=== PATIENT | male | born 1955 | race Two or more races ===

== ENCOUNTER 2023-01-29 09:36 | Day surgery (SDC) | payer OTHER ==
[~2023-01-29 09:36] MED LIST: Lactated Ringers 1,000 ML IV SCH
[2023-01-29] MEDS ORDERED: Propofol 200 MG/20 ML SDV ONE (11:47)
[2023-01-29] MEDS ORDERED: Lidocaine 2% 5 ML SDV ONE (11:47)
== END 2023-01-29 13:00 | disposition home or self-care (01) ==
LOC: MW.SDS 09:36
PROVIDERS: ATTEND Surgery
DX: Z12.11 Encounter for screening for malignant neoplasm of colon (principal); K57.30 Diverticulosis of large intestine without perforation or abscess without bleeding; K64.8 Other hemorrhoids; I11.0 Hypertensive heart disease with heart failure; I50.20 Unspecified systolic (congestive) heart failure; I25.10 Atherosclerotic heart disease of native coronary artery without angina pectoris; N40.0 Benign prostatic hyperplasia without lower urinary tract symptoms; I48.91 Unspecified atrial fibrillation; E78.00 Pure hypercholesterolemia, unspecified; E03.9 Hypothyroidism, unspecified; E66.9 Obesity, unspecified; Z68.33 Body mass index [BMI] 33.0-33.9, adult; Z95.5 Presence of coronary angioplasty implant and graft; Z79.82 Long term (current) use of aspirin; Z79.01 Long term (current) use of anticoagulants; Z79.890 Hormone replacement therapy; Z79.899 Other long term (current) drug therapy
CPT/HCPCS: 45378; J2704; J7120; J3490

== ENCOUNTER 2023-03-12 08:47 | Emergency (ER) | payer OTHER ==
[2023-03-12] MEDS ORDERED: Sodium Chloride 0.9% 10 ML Syringe FLUSH PRN (09:12)
[2023-03-12] MEDS ORDERED: Sodium Chloride 0.9% 2.5 ML Syringe FLUSH PRN (09:12)
[2023-03-12 11:09] LABS: BASOPHILS ABSOLUTE AUTO 0.02 K/uL (0.00-0.20); BASOPHILS PERCENT AUTO 0.2 % (0.0-1.0); EOSINOPHILS ABSOLUTE AUTO 0.06 K/uL (0.00-0.45); EOSINOPHILS PERCENT AUTO 0.5 % (0.0-6.0); HEMATOCRIT 32.9 % (42.0-52.0); HEMOGLOBIN 10.7 g/dL (14.0-18.0); IMMATURE GRAN ABSOLUTE AUTO 0.03 K/uL (0.00-0.05); IMMATURE GRAN PERCENT AUTO 0.3 % (0.0-0.4); LYMPHOCYTES ABSOLUTE AUTO 0.76 K/uL (1.00-4.80); MEAN CORPUSCULAR HEMOGLOBIN 31.4 pg (28.0-32.0); MEAN CORPUSCULAR HGB CONC 32.5 g/dL (32.0-36.0); MEAN CORPUSCULAR VOLUME 96.5 fL (83.0-99.0); MEAN PLATELET VOLUME 10.1 fL (9.4-12.4); MONOCYTES ABSOLUTE AUTO 1.13 K/uL (0.00-0.80); MONOCYTES PERCENT AUTO 10.4 % (0.0-8.0); NEUTROPHILS ABSOLUTE AUTO 8.91 K/uL (1.80-7.70); NEUTROPHILS PERCENT AUTO 81.6 % (41.0-71.0); PLATELET COUNT,PLT 228 K/uL (150-400); RED BLOOD CELL COUNT 3.41 M/uL (4.52-5.90); WHITE BLOOD CELL COUNT,WBC 10.91 K/uL (3.9-11.3)
[2023-03-12 11:44] LABS: A/G RATIO 0.7 (0.9-1.6); BILIRUBIN TOTAL 1.1 mg/dL (0.2-1.0); CALCIUM 9.5 mg/dL (8.5-10.1); CREATININE 1.6 mg/dL (0.8-1.3); EST CRCL DRUG DOSING (CG) 40.16 mL/min; POTASSIUM,K 4.1 mmol/L (3.5-5.1); PROTEIN TOTAL,TP 7.5 g/dL (6.4-8.2)
[2023-03-12] MEDS ORDERED: Iopamidol 755 MG/ML 500 ML Multipack Bottle IVPUSH STA (12:09)
[2023-03-12] MEDS ORDERED: Enoxaparin 100 MG/1 ML Syringe SUBCUT ONE (14:29)
== END 2023-03-12 18:50 | disposition home or self-care (01) ==
LOC: MW.ED 08:47
DX: I26.99 Other pulmonary embolism without acute cor pulmonale (principal); I10 Essential (primary) hypertension; E78.00 Pure hypercholesterolemia, unspecified; E11.9 Type 2 diabetes mellitus without complications; Z79.01 Long term (current) use of anticoagulants; Z95.1 Presence of aortocoronary bypass graft; Z79.899 Other long term (current) drug therapy
CPT/HCPCS: 36415; 71045; 71275; 76705; 80053; 83690; 84484; 85025; 93005; 96372; 99284; J1650; J3490; Q9967

== ENCOUNTER 2023-03-13 10:14 | Emergency (ER) | payer OTHER ==
[2023-03-13] MEDS ORDERED: Sodium Chloride 0.9% 2.5 ML Syringe FLUSH PRN (10:26)
[2023-03-13] MEDS ORDERED: Sodium Chloride 0.9% 10 ML Syringe FLUSH PRN (10:26)
[2023-03-13] MEDS ORDERED: Ondansetron 4 MG Tab.DIS PO STA (10:50)
[2023-03-13 11:34] LABS: CORONAVIRUS COVID-19 NAA NEGATIVE (NEGATIVE); INFLUENZA A NAA NEGATIVE (NEGATIVE); INFLUENZA B NAA NEGATIVE (NEGATIVE); RESPIRATORY SYNCYTIAL VIR NAA NEGATIVE (NEGATIVE)
[2023-03-13] MEDS ORDERED: Lidocaine 1% 5 ML VIAL ONE (11:40)
[2023-03-13 12:16] LABS: BASOPHILS ABSOLUTE AUTO 0.03 K/uL (0.00-0.20); BASOPHILS PERCENT AUTO 0.3 % (0.0-1.0); EOSINOPHILS ABSOLUTE AUTO 0.02 K/uL (0.00-0.45); EOSINOPHILS PERCENT AUTO 0.2 % (0.0-6.0); HEMATOCRIT 30.5 % (42.0-52.0); HEMOGLOBIN 9.9 g/dL (14.0-18.0); IMMATURE GRAN ABSOLUTE AUTO 0.03 K/uL (0.00-0.05); IMMATURE GRAN PERCENT AUTO 0.3 % (0.0-0.4); LYMPHOCYTES ABSOLUTE AUTO 0.51 K/uL (1.00-4.80); LYMPHOCYTES PERCENT AUTO 4.5 % (24.0-44.0); MEAN CORPUSCULAR HEMOGLOBIN 31.1 pg (28.0-32.0); MEAN CORPUSCULAR HGB CONC 32.5 g/dL (32.0-36.0); MEAN CORPUSCULAR VOLUME 95.9 fL (83.0-99.0); MEAN PLATELET VOLUME 10.1 fL (9.4-12.4); MONOCYTES ABSOLUTE AUTO 0.86 K/uL (0.00-0.80); MONOCYTES PERCENT AUTO 7.6 % (0.0-8.0); NEUTROPHILS ABSOLUTE AUTO 9.94 K/uL (1.80-7.70); NEUTROPHILS PERCENT AUTO 87.1 % (41.0-71.0); PLATELET COUNT,PLT 226 K/uL (150-400); RED BLOOD CELL COUNT 3.18 M/uL (4.52-5.90); WHITE BLOOD CELL COUNT,WBC 11.39 K/uL (3.9-11.3)
[2023-03-13 12:40] LABS: A/G RATIO 0.8 (0.9-1.6); ALBUMIN 2.7 g/dL (3.4-5.0); BILIRUBIN TOTAL 2.4 mg/dL (0.2-1.0); CALCIUM 9.2 mg/dL (8.5-10.1); CARBON DIOXIDE,CO2 23.4 mmol/L (21.0-32.0); CREATININE 1.3 mg/dL (0.8-1.3); EST CRCL DRUG DOSING (CG) 49.43 mL/min; POTASSIUM,K 3.9 mmol/L (3.5-5.1); PROTEIN TOTAL,TP 6.2 g/dL (6.4-8.2)
[2023-03-13] MEDS ORDERED: Sodium Chloride 0.9% 1,000 ML IV STA (12:53)
[2023-03-13] MEDS ORDERED: Ketorolac 30 MG/ML SDV IVPUSH STA (12:53)
[2023-03-13] MEDS ORDERED: Iopamidol 755 MG/ML 500 ML Multipack Bottle IVPUSH STA (13:54)
[2023-03-13] MEDS ORDERED: Morphine 4 MG/ML Syringe IVPUSH STA (17:55)
== END 2023-03-13 19:44 ==
LOC: MW.ED 10:14
DX: K80.42 Calculus of bile duct with acute cholecystitis without obstruction (principal); R74.01 Elevation of levels of liver transaminase levels; E78.00 Pure hypercholesterolemia, unspecified; I10 Essential (primary) hypertension; E11.9 Type 2 diabetes mellitus without complications; E66.9 Obesity, unspecified; Z79.01 Long term (current) use of anticoagulants; Z79.899 Other long term (current) drug therapy; Z20.822 Contact with and (suspected) exposure to COVID-19; Z68.34 Body mass index [BMI] 34.0-34.9, adult
CPT/HCPCS: 0241U; 36415; 71046; 74177; 80053; 83690; 83735; 83880; 84484; 85025; 93005; 96361; 96374; 96375; 99285; A9270; J1885; J2270; J3490; J7030; Q9967

== ENCOUNTER 2024-06-19 07:09 | Inpatient (IN) | payer OTHER ==
[2024-06-19] MEDS ORDERED: Sodium Chloride 0.9% 10 ML Syringe FLUSH PRN (07:52)
[2024-06-19 07:59] LABS: BASOPHILS ABSOLUTE AUTO 0.02 K/uL (0.00-0.20); BASOPHILS PERCENT AUTO 0.4 % (0.0-1.0); EOSINOPHILS ABSOLUTE AUTO 0.03 K/uL (0.00-0.45); EOSINOPHILS PERCENT AUTO 0.6 % (0.0-6.0); HEMATOCRIT 25.1 % (42.0-52.0); HEMOGLOBIN 8.3 g/dL (14.0-18.0); IMMATURE GRAN ABSOLUTE AUTO 0.01 K/uL (0.00-0.05); IMMATURE GRAN PERCENT AUTO 0.2 % (0.0-0.4); LYMPHOCYTES PERCENT AUTO 28.1 % (24.0-44.0); MEAN CORPUSCULAR HEMOGLOBIN 35.2 pg (28.0-32.0); MEAN CORPUSCULAR HGB CONC 33.1 g/dL (32.0-36.0); MEAN CORPUSCULAR VOLUME 106.4 fL (83.0-99.0); MEAN PLATELET VOLUME 10.9 fL (9.4-12.4); MONOCYTES ABSOLUTE AUTO 0.53 K/uL (0.00-0.80); MONOCYTES PERCENT AUTO 9.9 % (0.0-8.0); NEUTROPHILS ABSOLUTE AUTO 3.24 K/uL (1.80-7.70); NEUTROPHILS PERCENT AUTO 60.8 % (41.0-71.0); PLATELET COUNT,PLT 150 K/uL (150-400); RED BLOOD CELL COUNT 2.36 M/uL (4.52-5.90); WHITE BLOOD CELL COUNT,WBC 5.33 K/uL (3.9-11.3)
[2024-06-19 08:06] LABS: INR 1.05 (0.86-1.11)
[2024-06-19 08:12] LABS: A/G RATIO 1.4 (0.9-1.6); ALANINE AMINOTRANSFERASE,ALT 26 IU/L (14-63); ALKALINE PHOSPHATASE 65 U/L (46-116); ASPARTATE AMNIOTRANSFERASE,AST 16 IU/L (15-37); BILIRUBIN TOTAL 0.7 mg/dL (0.2-1.0); BLOOD UREA NITROGEN,BUN 112 mg/dL (7.0-18.0); CALCIUM 9.2 mg/dL (8.5-10.1); CARBON DIOXIDE,CO2 16.4 mmol/L (21.0-32.0); CHLORIDE,CL 104 mmol/L (98-107); CREATININE 4.8 mg/dL (0.8-1.3); GLUCOSE RANDOM 97 mg/dL (74-106); MAGNESIUM 2.6 mg/dL (1.8-2.4); POTASSIUM,K 4.4 mmol/L (3.5-5.1); PROTEIN TOTAL,TP 6.9 g/dL (6.4-8.2); SODIUM,NA 140 mmol/L (136-148)
[2024-06-19 08:13] LABS: ESTIMATED GFR 12 mL/min (>60)
[2024-06-19] MEDS: Sodium Chloride 0.9% 1,000 ML IV ONE (08:14)
[2024-06-19 09:11] LABS: APPEARANCE,URINE CLEAR; COLOR,URINE YELLOW; GLUCOSE,URINE NEGATIVE (NEGATIVE); KETONES,URINE 15 mg/dL (NEGATIVE); LEUKOCYTE ESTERASE,URINE MODERATE (NEGATIVE); NITRITE,URINE NEGATIVE (NEGATIVE); OCCULT BLOOD,URINE NEGATIVE (NEGATIVE); PROTEIN,URINE NEGATIVE (NEGATIVE); UROBILINOGEN,URINE 0.2 EU/dL (<2.0)
[2024-06-19 09:12] LABS: BILIRUBIN,URINE MODERATE (NEGATIVE)
[2024-06-19 09:20] LABS: BACTERIA,URINE 2+ (NEGATIVE); EPITHELIAL CELLS,URINE FEW (NONE-FEW); RBC,URINE 0-2 (0-2/HPF); WBC,URINE 15-20 (0-5/HPF)
[2024-06-19] MEDS: Lactated Ringers 1,000 ML IV ONE (09:52)
[2024-06-19] MEDS ORDERED: cefTRIAXone 1,000 MG in Dextrose 5% in Water 50 ML IV ONE (10:42)
[2024-06-19] MEDS: Sodium Chloride 0.9% 1,000 ML IV SCH (11:09)
[2024-06-19] MEDS: cefTRIAXone 1 GM in Water For Injection, Sterile 10 ML IV ONE (11:48)
[2024-06-19] MEDS ORDERED: Ondansetron 4 MG/2 ML SDV IVPUSH PRN (13:39)
[2024-06-19] MEDS ORDERED: Acetaminophen 650 MG Supp RECTAL PRN (13:39)
[2024-06-19] MEDS ORDERED: Albuterol/Ipratropium 3.0-0.5 MG/3 ML Neb Soln NEB PRN (13:39)
[2024-06-19] MEDS ORDERED: Melatonin 3 MG Tab PO PRN (13:39)
[2024-06-19] MEDS: Gabapentin 300 MG Cap PO SCH (14:57)
[2024-06-19] MEDS: Acetaminophen 325 MG Tab PO PRN (14:57)
[2024-06-19] MEDS: Pantoprazole 40 MG in Sodium Chloride 0.9% 10 ML IVPUSH SCH (14:58)
[2024-06-19 17:24] LABS: BASOPHILS ABSOLUTE AUTO 0.02 K/uL (0.00-0.20); BASOPHILS PERCENT AUTO 0.5 % (0.0-1.0); EOSINOPHILS ABSOLUTE AUTO 0.05 K/uL (0.00-0.45); EOSINOPHILS PERCENT AUTO 1.3 % (0.0-6.0); HEMATOCRIT 20.6 % (42.0-52.0); HEMOGLOBIN 6.7 g/dL (14.0-18.0); IMMATURE GRAN ABSOLUTE AUTO 0.01 K/uL (0.00-0.05); IMMATURE GRAN PERCENT AUTO 0.3 % (0.0-0.4); LYMPHOCYTES ABSOLUTE AUTO 1.05 K/uL (1.00-4.80); LYMPHOCYTES PERCENT AUTO 27.6 % (24.0-44.0); MEAN CORPUSCULAR HEMOGLOBIN 34.9 pg (28.0-32.0); MEAN CORPUSCULAR HGB CONC 32.5 g/dL (32.0-36.0); MEAN CORPUSCULAR VOLUME 107.3 fL (83.0-99.0); MEAN PLATELET VOLUME 10.4 fL (9.4-12.4); MONOCYTES ABSOLUTE AUTO 0.43 K/uL (0.00-0.80); MONOCYTES PERCENT AUTO 11.3 % (0.0-8.0); NEUTROPHILS ABSOLUTE AUTO 2.24 K/uL (1.80-7.70); PLATELET COUNT,PLT 114 K/uL (150-400); RED BLOOD CELL COUNT 1.92 M/uL (4.52-5.90)
[2024-06-19 17:57] LABS: CALCIUM 8.1 mg/dL (8.5-10.1); CARBON DIOXIDE,CO2 18.4 mmol/L (21.0-32.0); CREATININE 3.4 mg/dL (0.8-1.3); EST CRCL DRUG DOSING (CG) 18.63 mL/min; POTASSIUM,K 4.3 mmol/L (3.5-5.1)
[2024-06-19] MEDS: atorvaSTATin 40 MG Tab PO SCH (21:08)
[2024-06-19] MEDS: Midodrine 5 MG Tab PO SCH (21:08)
[2024-06-19] MEDS: Tamsulosin 0.4 MG Cap.ER PO ONE (21:09)
[2024-06-20 05:58] LABS: HEMATOCRIT 20.2 % (42.0-52.0); HEMOGLOBIN 6.4 g/dL (14.0-18.0); MEAN CORPUSCULAR HEMOGLOBIN 34.2 pg (28.0-32.0); MEAN CORPUSCULAR HGB CONC 31.7 g/dL (32.0-36.0); MEAN PLATELET VOLUME 10.7 fL (9.4-12.4); PLATELET COUNT,PLT 104 K/uL (150-400); RED BLOOD CELL COUNT 1.87 M/uL (4.52-5.90); WHITE BLOOD CELL COUNT,WBC 3.06 K/uL (3.9-11.3)
[2024-06-20 06:22] LABS: CREATININE 2.5 mg/dL (0.8-1.3); EST CRCL DRUG DOSING (CG) 25.34 mL/min; MAGNESIUM 2.1 mg/dL (1.8-2.4); POTASSIUM,K 4.3 mmol/L (3.5-5.1)
[2024-06-20 07:26] LABS: EOSINOPHILS ABSOLUTE MAN 0.06 K/uL (0.00-0.45); EOSINOPHILS PERCENT MAN 2 % (0-6); LYMPHOCYTES PERCENT MAN 36 % (24-44); MICROCYTOSIS 1+ SLIGHT; MONOCYTES ABSOLUTE MAN 0.09 K/uL (0.00-0.80); MONOCYTES PERCENT MAN 3 % (0-8); SEG NEUTROPHILS ABSOLUTE MAN 1.81 K/uL (1.80-7.70); SEG NEUTROPHILS PERCENT MAN 59 % (41-71)
[2024-06-20] MEDS: Tamsulosin 0.4 MG Cap.ER PO SCH (08:11)
[2024-06-20] MEDS: cefTRIAXone 1 GM in Water For Injection, Sterile 10 ML IVPUSH SCH (08:11)
[2024-06-20] MEDS ORDERED: Tamsulosin 0.4 MG Cap.ER PO SCH (08:30)
[2024-06-20] MEDS: Midodrine 5 MG Tab PO SCH (12:22)
[2024-06-20 14:22] LABS: HEMATOCRIT 25.7 % (42.0-52.0); HEMOGLOBIN 8.5 g/dL (14.0-18.0)
[2024-06-20] MEDS: Sodium Chloride 0.9% 1,000 ML IV SCH (14:36)
[2024-06-20] MEDS: Benzonatate 100 MG Cap PO PRN (17:07)
[2024-06-20] MEDS: Apixaban 5 MG Tab PO SCH (21:17)
[2024-06-21] MEDS: Sodium Chloride 0.9% 500 ML IV SCH (00:17)
[2024-06-21] MEDS: Sodium Chloride 0.9% 500 ML IV ONE (02:19)
[2024-06-21] MEDS: Norepinephrine Bit/D5W Premix 250 ML IV SCH (05:47)
[2024-06-21 06:12] LABS: BASOPHILS ABSOLUTE AUTO 0.01 K/uL (0.00-0.20); BASOPHILS PERCENT AUTO 0.3 % (0.0-1.0); EOSINOPHILS PERCENT AUTO 2.9 % (0.0-6.0); HEMATOCRIT 26.3 % (42.0-52.0); HEMOGLOBIN 8.6 g/dL (14.0-18.0); IMMATURE GRAN ABSOLUTE AUTO 0.01 K/uL (0.00-0.05); IMMATURE GRAN PERCENT AUTO 0.3 % (0.0-0.4); LYMPHOCYTES ABSOLUTE AUTO 0.89 K/uL (1.00-4.80); LYMPHOCYTES PERCENT AUTO 25.4 % (24.0-44.0); MEAN CORPUSCULAR HEMOGLOBIN 33.9 pg (28.0-32.0); MEAN CORPUSCULAR HGB CONC 32.7 g/dL (32.0-36.0); MEAN CORPUSCULAR VOLUME 103.5 fL (83.0-99.0); MONOCYTES ABSOLUTE AUTO 0.37 K/uL (0.00-0.80); MONOCYTES PERCENT AUTO 10.6 % (0.0-8.0); NEUTROPHILS ABSOLUTE AUTO 2.12 K/uL (1.80-7.70); NEUTROPHILS PERCENT AUTO 60.5 % (41.0-71.0); PLATELET COUNT,PLT 98 K/uL (150-400); RED BLOOD CELL COUNT 2.54 M/uL (4.52-5.90)
[2024-06-21 06:31] LABS: CALCIUM 8.1 mg/dL (8.5-10.1); CARBON DIOXIDE,CO2 19.8 mmol/L (21.0-32.0); CREATININE 1.8 mg/dL (0.8-1.3); EST CRCL DRUG DOSING (CG) 35.19 mL/min; MAGNESIUM 1.8 mg/dL (1.8-2.4); POTASSIUM,K 4.2 mmol/L (3.5-5.1)
[2024-06-21] MEDS: Polyethylene Glycol 3350 Powder 17 GM Packet PO PRN (12:05)
[2024-06-21] MEDS: Magnesium Hydroxide 400 MG/5 ML Susp 30 ML Cup PO SCH (12:32)
[2024-06-22 05:13] LABS: BASOPHILS ABSOLUTE AUTO 0.01 K/uL (0.00-0.20); BASOPHILS PERCENT AUTO 0.2 % (0.0-1.0); EOSINOPHILS ABSOLUTE AUTO 0.13 K/uL (0.00-0.45); EOSINOPHILS PERCENT AUTO 2.9 % (0.0-6.0); HEMATOCRIT 27.4 % (42.0-52.0); HEMOGLOBIN 8.8 g/dL (14.0-18.0); IMMATURE GRAN ABSOLUTE AUTO 0.02 K/uL (0.00-0.05); IMMATURE GRAN PERCENT AUTO 0.5 % (0.0-0.4); LYMPHOCYTES ABSOLUTE AUTO 0.81 K/uL (1.00-4.80); LYMPHOCYTES PERCENT AUTO 18.2 % (24.0-44.0); MEAN CORPUSCULAR HEMOGLOBIN 33.5 pg (28.0-32.0); MEAN CORPUSCULAR HGB CONC 32.1 g/dL (32.0-36.0); MEAN CORPUSCULAR VOLUME 104.2 fL (83.0-99.0); MEAN PLATELET VOLUME 10.8 fL (9.4-12.4); MONOCYTES ABSOLUTE AUTO 0.43 K/uL (0.00-0.80); MONOCYTES PERCENT AUTO 9.7 % (0.0-8.0); NEUTROPHILS ABSOLUTE AUTO 3.04 K/uL (1.80-7.70); NEUTROPHILS PERCENT AUTO 68.5 % (41.0-71.0); PLATELET COUNT,PLT 101 K/uL (150-400); RED BLOOD CELL COUNT 2.63 M/uL (4.52-5.90); WHITE BLOOD CELL COUNT,WBC 4.44 K/uL (3.9-11.3)
[2024-06-22 05:33] LABS: A/G RATIO 1.1 (0.9-1.6); ALBUMIN 2.7 g/dL (3.4-5.0); BILIRUBIN TOTAL 0.5 mg/dL (0.2-1.0); CALCIUM 8.2 mg/dL (8.5-10.1); CARBON DIOXIDE,CO2 21.8 mmol/L (21.0-32.0); CREATININE 1.6 mg/dL (0.8-1.3); EST CRCL DRUG DOSING (CG) 39.59 mL/min; MAGNESIUM 1.8 mg/dL (1.8-2.4); PHOSPHORUS 3.6 mg/dL (2.6-4.7); POTASSIUM,K 3.9 mmol/L (3.5-5.1); PROTEIN TOTAL,TP 5.1 g/dL (6.4-8.2)
[2024-06-23] MEDS: Sodium Chloride 0.9% 1,000 ML IV SCH (02:59)
[2024-06-23 06:27] LABS: PERCENT FE SATURATION 21.08 % (20-55)
[2024-06-23] MEDS: Iopamidol 755 MG/ML 500 ML Multipack Bottle IVPUSH STA (09:08)
[2024-06-23] MEDS: Pantoprazole 40 MG Tab.CR PO SCH (14:06)
[2024-06-24 05:28] LABS: BASOPHILS ABSOLUTE AUTO 0.01 K/uL (0.00-0.20); BASOPHILS PERCENT AUTO 0.3 % (0.0-1.0); EOSINOPHILS ABSOLUTE AUTO 0.08 K/uL (0.00-0.45); EOSINOPHILS PERCENT AUTO 2.3 % (0.0-6.0); HEMATOCRIT 25.6 % (42.0-52.0); IMMATURE GRAN ABSOLUTE AUTO 0.01 K/uL (0.00-0.05); IMMATURE GRAN PERCENT AUTO 0.3 % (0.0-0.4); LYMPHOCYTES ABSOLUTE AUTO 0.91 K/uL (1.00-4.80); LYMPHOCYTES PERCENT AUTO 26.2 % (24.0-44.0); MEAN CORPUSCULAR HEMOGLOBIN 33.3 pg (28.0-32.0); MEAN CORPUSCULAR HGB CONC 31.3 g/dL (32.0-36.0); MEAN CORPUSCULAR VOLUME 106.7 fL (83.0-99.0); MEAN PLATELET VOLUME 10.8 fL (9.4-12.4); MONOCYTES ABSOLUTE AUTO 0.42 K/uL (0.00-0.80); MONOCYTES PERCENT AUTO 12.1 % (0.0-8.0); NEUTROPHILS ABSOLUTE AUTO 2.04 K/uL (1.80-7.70); NEUTROPHILS PERCENT AUTO 58.8 % (41.0-71.0); PLATELET COUNT,PLT 96 K/uL (150-400); WHITE BLOOD CELL COUNT,WBC 3.47 K/uL (3.9-11.3)
[2024-06-24 06:11] LABS: A/G RATIO 1.1 (0.9-1.6); ALBUMIN 2.6 g/dL (3.4-5.0); BILIRUBIN TOTAL 0.4 mg/dL (0.2-1.0); CALCIUM 8.1 mg/dL (8.5-10.1); CARBON DIOXIDE,CO2 24.4 mmol/L (21.0-32.0); CREATININE 1.4 mg/dL (0.8-1.3); EST CRCL DRUG DOSING (CG) 45.25 mL/min; MAGNESIUM 1.4 mg/dL (1.8-2.4)
[2024-06-24] MEDS: Tamsulosin 0.4 MG Cap.ER PO ONE (11:13)
[2024-06-24] MEDS: Magnesium Sulf/Wat 2 GM/50 mL 2 GM in Premix Bag 1 BAG IV ONE (11:14)
[2024-06-24] MEDS: Sodium Ferric Gluconate Cmplex 125 MG in Sodium Chloride 0.9% 100 ML IV ONE (11:15)
== END 2024-06-24 18:24 | disposition home or self-care (01) | DRG 812 ==
LOC: MW.ED 07:09 → MW.MS 10:26 → MW.ICU 06-20 11:46 → MW.MS 06-23 17:48
PROVIDERS: ADMIT Family Medicine; ATTEND Family Medicine
PROC: 30233N1 Transfusion of Nonautologous Red Blood Cells into Peripheral Vein, Percutaneous Approach (ICD-10-PCS; principal; 2024-06-19)
DX: D64.9 Anemia, unspecified (principal); E46 Unspecified protein-calorie malnutrition; N39.0 Urinary tract infection, site not specified; I50.22 Chronic systolic (congestive) heart failure; N17.9 Acute kidney failure, unspecified; Z66 Do not resuscitate; Z68.32 Body mass index [BMI] 32.0-32.9, adult; R53.1 Weakness; I11.0 Hypertensive heart disease with heart failure; I25.10 Atherosclerotic heart disease of native coronary artery without angina pectoris; E86.0 Dehydration; I10 Essential (primary) hypertension; N40.0 Benign prostatic hyperplasia without lower urinary tract symptoms; N20.0 Calculus of kidney; M19.90 Unspecified osteoarthritis, unspecified site; E03.9 Hypothyroidism, unspecified; I95.9 Hypotension, unspecified; I48.91 Unspecified atrial fibrillation; E66.9 Obesity, unspecified; E11.9 Type 2 diabetes mellitus without complications; Z85.038 Personal history of other malignant neoplasm of large intestine; Z95.5 Presence of coronary angioplasty implant and graft; E78.00 Pure hypercholesterolemia, unspecified; Z98.890 Other specified postprocedural states; Z90.49 Acquired absence of other specified parts of digestive tract; Z86.711 Personal history of pulmonary embolism; Z79.01 Long term (current) use of anticoagulants; Z96.649 Presence of unspecified artificial hip joint; Z79.890 Hormone replacement therapy; Z79.899 Other long term (current) drug therapy
CPT/HCPCS: 36415; 71045; 80053; 81001; 83605; 83735; 84484; 85025; 85610; 87086; 87088; 87186; 87428; 93005 ×2; 96360; 96361; 99285; J7030; J7120; 36410; 36430; 74177; 74177-26; 80048; 82525; 82728; 83550; 83880; 84100; 85014; 85018; 86850; 86900; 86901; 86920; 93010; 93306; 99284; A9270-GY; J0696; J2470; J2916; J3475; J7040; P9016; Q9967